=== PATIENT | male | born 1965 | race Caucasian/White ===

== ENCOUNTER 2018-08-01 12:37 | Emergency (ER) | payer OTHER ==
[~2018-08-01] VITALS: Wt 65.8 kg
[2018-08-01 12:37] VITALS: BP 143/87
[~2018-08-01 12:37] MED LIST: BACTRIM DS 8001 TA1 PO; BACTROBAN CREAM15 GM T; ELIMITE 5%60 GM PO; HYDROCODONE BIT1 T11 PO; KEFLEX500 M1 PO; MEDROL DOSEPAK4 MG PO; MOTRIN800 MG PO; PROVENTIL0.09 MG/AC IH
== END 2018-08-01 14:12 | disposition home or self-care (01) ==
LOC: ED 12:37
DX: S22.31XA Fracture of one rib, right side, initial encounter for closed fracture (principal); W22.8XXA Striking against or struck by other objects, initial encounter; Y93.89 Activity, other specified; Y92.828 Other wilderness area as the place of occurrence of the external cause; Y99.8 Other external cause status

== ENCOUNTER 2019-03-14 13:06 | Inpatient (IN) | payer SELFPAY ==
[~2019-03-14] VITALS: Ht 162.5 cm; Wt 61.9 kg
[2019-03-14 13:10] VITALS: BP 137/100
[2019-03-14 14:11] LABS: HEMATOCRIT 51.2 % (42.0-52.0); HEMOGLOBIN 17.7 g/dl (14.0-18.0); MEAN CELL VOLUME 99.4 fl (80.0-94.0); MEAN CORPUSCULAR HGB 34.4 pg (27.0-31.0); MEAN CORPUSCULAR HGB CONC 34.6 g/dl (33.0-37.0); MEAN PLATELET VOLUME 10.2 fl (9.6-12.3); PLATELET COUNT AUTOMATED 167 10*3/uL (130-400); RED BLOOD COUNT 5.15 10*6/uL (4.50-5.90); RED CELL DISTRI WIDTH 12.1 % (0-14.5); WHITE BLOOD COUNT 10.8 10*3/uL (4.8-10.8)
[2019-03-14 14:22] LABS: ACT PARTIAL THROMBO TIME 28.3 SECONDS (20.0-32.1); INTERNATIONAL NORM RATIO 0.9 (2.0-3.5)
[2019-03-14 14:26] LABS: ALBUMIN 3.6 gm/dl (3.1-4.5); ALKALINE PHOSPHATASE 98 U/L (45-117); BUN 16 mg/dl (7-24); CHLORIDE 98 mmol/L (98-107); CREATININE 0.99 mg/dL (0.70-1.30); LIPASE 78 U/L (73-393); POTASSIUM 3.6 mmol/L (3.5-5.1); SGOT/AST 28 IU/L (3-35); SGPT/ALT 35 U/L (12-78); SODIUM 131 mmol/L (136-145); TOTAL PROTEIN 8.1 gm/dL (6.4-8.2)
[2019-03-14 14:27] LABS: TROPONIN I < 0.015 ng/ml (<0.045)
[2019-03-14 14:30] LABS: PLATELET SUFFICIENCY NORMAL (NORMAL); TOTAL CELLS COUNTED 100 #CELLS
--- NOTE | 2019-03-14 15:41 | NUR ---
PT REMAINS W/O ACUTE DISTRESS NOTED AWAITING ALL RESULTS FOR ADDITIONAL PLAN OF CARE,SAFETY PRECAUTIONS INTACT AND CALL LIGHT WITHIN REACH.
[2019-03-14 15:57] VITALS: BP 130/91
--- NOTE | 2019-03-14 16:18 | NUR ---
PT POSITONED FOR COMFORT AND NO N/V/D NOTED WHILE IN ED,CALL LIGHT WITHIN REACH.
--- NOTE | 2019-03-14 16:49 | NUR ---
MILD RELIEF WITH PAIN MEDS.
[2019-03-14 18:52] VITALS: BP 130/88
--- NOTE | 2019-03-14 19:07 | NUR ---
PAIN REMAINS @ A 5 ON 1-10 PAIN SCALE AFTER MEDICATION ADMINISTRATION.
[2019-03-14 19:50] VITALS: BP 152/92
--- NOTE | 2019-03-14 19:50 | NUR ---
Time: 1948 A 54 year old MALE admitted to 5E under services of ISAIAS QUILES DO, Pt. arrived via WHEELCHAIR from ER. Chief complaint: ABDOMINAL PAIN. THOR JOHNSON
--- NOTE | 2019-03-14 21:03 | NUR ---
DR. JOSEPH NOTIFIED OF NEW CONSULT.
[2019-03-15] VITALS: BP 142/83
[2019-03-15 06:40] LABS: HEMATOCRIT 44.7 % (42.0-52.0); HEMOGLOBIN 15.3 g/dl (14.0-18.0); MEAN CELL VOLUME 97.8 fl (80.0-94.0); MEAN CORPUSCULAR HGB 33.5 pg (27.0-31.0); MEAN CORPUSCULAR HGB CONC 34.2 g/dl (33.0-37.0); MEAN PLATELET VOLUME 10.4 fl (9.6-12.3); PLATELET COUNT AUTOMATED 169 10*3/uL (130-400); RED BLOOD COUNT 4.57 10*6/uL (4.50-5.90); WHITE BLOOD COUNT 11.8 10*3/uL (4.8-10.8)
[2019-03-15 06:59] LABS: CHLORIDE 102 mmol/L (98-107); POTASSIUM 3.5 mmol/L (3.5-5.1); SODIUM 133 mmol/L (136-145)
[2019-03-15 07:00] LABS: INTERNATIONAL NORM RATIO 0.9 (2.0-3.5)
[2019-03-15 07:12] LABS: ALBUMIN 2.9 gm/dl (3.1-4.5); ALKALINE PHOSPHATASE 80 U/L (45-117); BUN 10 mg/dl (7-24); CHOLESTEROL 180 mg/dL (<200); HDL CHOLESTEROL 53 mg/dl (40-60); LDL CHOLESTEROL 105 mg/dL (9-159); SGOT/AST 21 IU/L (3-35); SGPT/ALT 30 U/L (12-78); TOTAL PROTEIN 6.8 gm/dL (6.4-8.2); TRIGLYCERIDES 110 mg/dl (<150); VLDL CHOLESTEROL 22 mg/dL (6-40)
[2019-03-15 07:21] LABS: ATYPICAL LYMPHS 1 % (0-0); TOTAL CELLS COUNTED 100 #CELLS
[2019-03-15 07:22] LABS: PLATELET SUFFICIENCY NORMAL (NORMAL)
[2019-03-15 08:00] VITALS: BP 150/86
[2019-03-15 09:52] LABS: VITAMIN D, 25-HYDROXY 19.6 ng/mL (30-100)
--- NOTE | 2019-03-15 11:27 | NUR ---
TYPEWRITER MECHANIC attempted to speak with the patient about his electric and gas being disconnected on 03/22/2019. RN and Aide was in room with the patient. TYPEWRITER MECHANIC will attempt to speak with patient at a later time and will provide resources on PIPP and the [facility] Winter Crisis Program. -KADY Frias
[2019-03-15 12:00] VITALS: BP 152/90
--- NOTE | 2019-03-15 12:18 | NUR ---
Fermentation Manager in to talk to patient. Patient states lives at HOME with SON. There are FEW steps in the home. Physician: NONE Pharmacy: [facility] Home health services: NONE Patient's level of ADLs: INDEPENDENT Patient has working utilities: STATES GAS IS OFF AND ELECTRIC IS GOING TO BE SHUT OFF. STATES HE RECENTLY QUIT HIS JOB AND IS COLLECTING UNEMPLOYMENT. KADY MCCLAIN NOTIFIED AND HAS TALKED TO PT AND GIVEN HIM RESOURSES DME: NONE Follow-up physician's appointment after d/c: WILL FIND MD AND MAKE APPOINTMENT AFTER DISCHARGE Does patient want to access PORTAL?: NO Discharge plan PT LIVES AT HOME WITH GROWN SON AND IS INDEPENDENT AT HOME. DENIES NEEDS AT HOME. SEE ABOVE NOT ABOUT UNTILTIES. WILL CONTINUE TO FOLLOW. PT STATES HE WILL HAVE RIDE HOME WHEN DISCHARGE.. PARAMJIT BRODERICK
[2019-03-15 16:00] VITALS: BP 151/75
--- NOTE | 2019-03-15 19:51 | NUR ---
ATTEMPTED TO CALL DR. JOSEPH REGARDING POSSIBLE EGD. NO ANSWER. WILL RETRY
[2019-03-15 20:00] VITALS: BP 159/84
[2019-03-16] VITALS (8 sets, daily range): BP systolic 127–164; BP diastolic 72–90
--- NOTE | 2019-03-16 00:46 | NUR ---
PATIENT GIVEN TYLENOL FOR TEMP OF 100.1. WILL CHECK EFFECTIVENESS.
[2019-03-16 06:29] LABS: HEMATOCRIT 47.6 % (42.0-52.0); HEMOGLOBIN 16.2 g/dl (14.0-18.0); MEAN CELL VOLUME 98.8 fl (80.0-94.0); MEAN CORPUSCULAR HGB 33.6 pg (27.0-31.0); MEAN PLATELET VOLUME 10.7 fl (9.6-12.3); PLATELET COUNT AUTOMATED 177 10*3/uL (130-400); RED BLOOD COUNT 4.82 10*6/uL (4.50-5.90); RED CELL DISTRI WIDTH 11.9 % (0-14.5); WHITE BLOOD COUNT 13.7 10*3/uL (4.8-10.8)
[2019-03-16 06:50] LABS: BUN 10 mg/dl (7-24); CHLORIDE 97 mmol/L (98-107); CREATININE 0.93 mg/dL (0.70-1.30); POTASSIUM 3.6 mmol/L (3.5-5.1); SODIUM 133 mmol/L (136-145)
--- NOTE | 2019-03-16 07:12 | NUR ---
PUBLIC WORKS SUPERVISOR spoke with the patient. PUBLIC WORKS SUPERVISOR provided the patient with the resources on HEAP Winter Crisis and PIPP programs. PUBLIC WORKS SUPERVISOR also provided the patient with the contact number for [employer] [facility] to seek out utility assistance. Patient stated that the gas in his home is already turned off and his electric bill is over $400 because he has been heating with electric heaters. Patient stated he is currently on unemployment. Patient also stated he has somewhat been in contact with [employer] as he received a little assistance from the [employer] last month. Patient stated he would read over the information provided to him and would contact [employer] to seek further assistance. PUBLIC WORKS SUPERVISOR to follow respectfully. -KADY Frias
[2019-03-16 07:38] LABS: BASOPHILS 1 % (0-1); PLATELET SUFFICIENCY NORMAL (NORMAL); TOTAL CELLS COUNTED 100 #CELLS
--- NOTE | 2019-03-16 13:15 | NUR ---
Pt taken off floor to OR for EGD.
--- NOTE | 2019-03-16 13:26 | NUR ---
PT CONTINUES TO DENY HE WILL HAVE NEEDS AFTER DISCHARGE. WILL CONTINUE TO FOLLOW.
--- NOTE | 2019-03-16 18:05 | NUR ---
Pt states that he feels like something is in his ear. States he cannot hear out of it on rt side. States sound is muffled. Appears that pt has wax in ear canal. States he wants to look in ear. I notified Dr. Macdonald of pt request. Currently with another pt and will be up when he can.
--- NOTE | 2019-03-16 19:00 | NUR ---
Dr. Macdonald was up and examined pt ear. States he is going to order some antibiotic drops for pt.
[2019-03-17] VITALS: BP 143/83
[2019-03-17 06:30] LABS: HEMATOCRIT 42.9 % (42.0-52.0); HEMOGLOBIN 14.7 g/dl (14.0-18.0); MEAN CELL VOLUME 98.2 fl (80.0-94.0); MEAN CORPUSCULAR HGB 33.6 pg (27.0-31.0); MEAN CORPUSCULAR HGB CONC 34.3 g/dl (33.0-37.0); MEAN PLATELET VOLUME 11.3 fl (9.6-12.3); PLATELET COUNT AUTOMATED 169 10*3/uL (130-400); RED BLOOD COUNT 4.37 10*6/uL (4.50-5.90); WHITE BLOOD COUNT 14.4 10*3/uL (4.8-10.8)
[2019-03-17 06:40] LABS: BUN 11 mg/dl (7-24); CHLORIDE 103 mmol/L (98-107); CREATININE 0.62 mg/dL (0.70-1.30); POTASSIUM 3.1 mmol/L (3.5-5.1); SODIUM 137 mmol/L (136-145)
[2019-03-17 07:11] LABS: PLATELET SUFFICIENCY NORMAL (NORMAL); TARGET CELLS FEW; TOTAL CELLS COUNTED 100 #CELLS
[2019-03-17 08:00] VITALS: BP 145/89
--- NOTE | 2019-03-17 08:00 | NUR ---
Alert and oriented x3. Denies n/v, states having diarrhea stools. IVF infusing per orders. States rt ear feels much better today, no drainage noted from ear this am.
--- NOTE | 2019-03-17 10:44 | NUR ---
Dr. Rocha states that pt is request advancing of diet. I spoke with Dr. Garcia regarding this. States NOT to advance at this time, pt to remain on full liquid. Dr. Garcia states pt had large ulcer and need to give medications time to heal a bit before solid foods.
[2019-03-17 12:00] VITALS: BP 134/83
[2019-03-17 16:00] VITALS: BP 134/91
--- NOTE | 2019-03-17 19:40 | NUR ---
24 HOUR CHART CHECK COMPLETE
[2019-03-17 20:00] VITALS: BP 129/82
--- NOTE | 2019-03-17 20:15 | NUR ---
PATIENT ASSESSMENT COMPLETED AT THIS TIME WITHOUT INCIDENT. PATIENT DENIES ANY PAIN OR NEEDS AT THIS TIME. CALL LIGHT WITHIN REACH, WILL CONTINUE TO MONITOR.
[2019-03-18] VITALS: BP 124/81
[2019-03-18 06:49] LABS: BASO # 0.1 10*3/uL (0.0-0.1); BASO % 0.7 % (0.0-1.0); EOS # 0.3 10*3/uL (0.0-0.4); EOS % 2.7 % (1.0-4.0); HEMATOCRIT 42.8 % (42.0-52.0); HEMOGLOBIN 14.7 g/dl (14.0-18.0); LYMPH # 2.2 10*3/uL (1.3-4.4); LYMPH % 22.4 % (27.0-41.0); MEAN CELL VOLUME 99.1 fl (80.0-94.0); MEAN CORPUSCULAR HGB CONC 34.3 g/dl (33.0-37.0); MEAN PLATELET VOLUME 12.5 fl (9.6-12.3); MONO # 1.1 10*3/uL (0.1-1.0); MONO % 11.2 % (3.0-9.0); NEUT % 62.1 % (47.0-73.0); PLATELET COUNT AUTOMATED 202 10*3/uL (130-400); RED BLOOD COUNT 4.32 10*6/uL (4.50-5.90); RED CELL DISTRI WIDTH 12.1 % (0-14.5); WHITE BLOOD COUNT 9.7 10*3/uL (4.8-10.8)
[2019-03-18 08:00] VITALS: BP 145/91
[2019-03-18 12:00] VITALS: BP 123/73
--- NOTE | 2019-03-18 14:31 | NUR ---
DR JOSEPH CALLED AND ASKED IF DIET COULD BE ADVANCED FROM FULL LIQUID PER DR JOSEPH PT TO STAY ON FULL LIQUID FOR TODAY DR GUAJARDO NOTIFIED
[2019-03-18 16:00] VITALS: BP 134/82
[2019-03-18 20:00] VITALS: BP 132/88
[2019-03-19] VITALS: BP 140/85
--- NOTE | 2019-03-19 02:56 | NUR ---
24 HOUR CHART CHECK COMPLETED
[2019-03-19 05:59] LABS: HEMATOCRIT 43.2 % (42.0-52.0); HEMOGLOBIN 14.6 g/dl (14.0-18.0); MEAN CELL VOLUME 97.7 fl (80.0-94.0); MEAN CORPUSCULAR HGB CONC 33.8 g/dl (33.0-37.0); MEAN PLATELET VOLUME 10.4 fl (9.6-12.3); PLATELET COUNT AUTOMATED 262 10*3/uL (130-400); RED BLOOD COUNT 4.42 10*6/uL (4.50-5.90); RED CELL DISTRI WIDTH 11.9 % (0-14.5); WHITE BLOOD COUNT 7.9 10*3/uL (4.8-10.8)
[2019-03-19 06:46] LABS: ATYPICAL LYMPHS 1 % (0-0); PLATELET SUFFICIENCY NORMAL (NORMAL); TARGET CELLS FEW; TOTAL CELLS COUNTED 100 #CELLS
--- NOTE | 2019-03-19 07:46 | NUR ---
pt resting in bed. no distress noted. will monitor
--- NOTE | 2019-03-19 07:53 | NUR ---
VITAL SIGNS ARE STABLE. PATIENT IS RESTING IN BED AT THIS TIME. HE IS PLEASANT AND COOPERATIVE. MARIA FERNANDA. BILATERAL EQUAL PATIENT RESOURCE SPECIALIST. A&Ox3. LUNGS SOUNDS ARE CLEAR THROUGHOUT. NON LABORED RESPIRATIONS. HEART SOUNDS ARE NORMAL. ABDOMEN IS SOFT, NON TENDER AND NON DISTENDED. HYPERACTIVE BOWEL SOUNDS X4. PATIENT HAS NO COMPLAINTS OF ABDOMINAL PAIN. HE NOTES THAT HIS LAST BOWEL MOVEMENT WAS THIS MORNING AND STATES THAT IT WAS "BROWN AND WATER". SKIN IS PINK, WARM, DRY AND NON TENTING, TURGOR IS GOOD. CAPILLARY REFILL IS LESS THAN 3 SECONDS. THERE IS A 20G IV HEP LOCK IN HIS LEFT ARM, NO ECCYMOSIS, WARMTH OR EDEMA TO THE SITE. ANDREI CORTES SPNRCC
[2019-03-19 08:00] VITALS: BP 132/86
--- NOTE | 2019-03-19 09:45 | NUR ---
PATIENT UP OUT OF BED. AMBULATED TO THE SHOWER. STEADY GAIT. NO COMPLAINTS AT THIS TIME. WILL CONTINUE TO MONITOR. ANDREI MELENDEZ
--- NOTE | 2019-03-19 11:20 | NUR ---
PATIENT IS RESTING IN BED WATCHING TELEVISION. NO COMPLAINTS. CALL LIGHT WITHIN REACH. WILL CONTINUE TO MONITOR. ANDREI MELENDEZ
[2019-03-19 12:04] VITALS: BP 136/86
--- NOTE | 2019-03-19 15:14 | NUR ---
PT LIVES AT HOME WITH HIS SON AND IS INDEPENDENT IN HIS CARE. WILL CONTINUE TO FOLLOW.
[2019-03-19 16:00] VITALS: BP 148/95
--- NOTE | 2019-03-19 16:06 | NUR ---
PT RESTING IN BED./ NO DISTRESS NOTED. WILL MONITOR
[2019-03-19 20:00] VITALS: BP 119/83
--- NOTE | 2019-03-19 22:07 | NUR ---
IV started right hand with #22 angiocath after 3 attempts. The IV site was prepped with Chloraprep. Heparin lock attached. Sterile dressing applied. Patient tolerated precedure well. Procedure performed according to [facility] policy & procedure. NILAM LINDSEY
[2019-03-20] VITALS: BP 129/84
--- NOTE | 2019-03-20 01:56 | NUR ---
24 HR chart check completed.
--- NOTE | 2019-03-20 04:24 | NUR ---
Patient sleeping. Respirations relaxed and easy. Siderails up . [place] on. NILAM LINDSEY
[2019-03-20 06:44] LABS: BUN 9 mg/dl (7-24); CHLORIDE 104 mmol/L (98-107); CREATININE 0.76 mg/dL (0.70-1.30); POTASSIUM 3.1 mmol/L (3.5-5.1); SODIUM 138 mmol/L (136-145)
[2019-03-20 08:00] VITALS: BP 118/70
--- NOTE | 2019-03-20 08:00 | NUR ---
Patient resting quietly with no c/o discomfort. Respirations easy and regular. Vital signs stable. No overt distress. ARTURO DIETZ
[2019-03-20 12:00] VITALS: BP 143/82
[2019-03-20 12:07] LABS: IGG P18 AB Absent (.); IGG P23 AB Absent (.); IGG P28 AB Absent (.); IGG P30 AB Absent (.); IGG P39 AB Absent (.); IGG P41 AB Absent (.); IGG P45 AB Absent (.); IGG P58 AB Absent (.); IGG P63 AB Absent (.); IGG P66 AB Absent (.); IGM P23 AB Absent (.); IGM P39 AB Absent (.); IGM P41 AB Absent (.); LYME IGG WB INTERPRETATION Negative (.); LYME IGM WB INTERPRETATION Negative (.)
[2019-03-20] MEDS ORDERED: PANTOPRAZOLE SO40 MG PO (12:45)
[2019-03-20] MEDS ORDERED: DOXYCYCLINE100 M3 PO (12:45)
[2019-03-20] MEDS ORDERED: Carafate1 GM PO (12:45)
[2019-03-20] MEDS ORDERED: CIPROFLOXACIN2.5 M1 OT (12:45)
--- NOTE | 2019-03-20 13:40 | NUR ---
LEAVING IN CARE OR SELF, AMBULATORY. RN TO GET PRESCRIPTIONS SWITCHED TO IN HOSPITAL PHARMACY AND CALL PT WHO INSISTED ON COMING BACK FOR PRESCRIPTIONS.
== END 2019-03-20 13:40 | disposition home or self-care (01) | DRG 867 ==
LOC: ED 13:06 → 5E 18:26 → EDHOLD 18:26 → 5E 19:09
PROVIDERS: Emergency Medicine; Internal Medicine; Student in an Organized Health Care Education/Training Program; ADMIT Internal Medicine
PROC: 0DB68ZX Excision of Stomach, Via Natural or Artificial Opening Endoscopic, Diagnostic (ICD-10-PCS; principal; 2019-03-16)
DX: A69.20 Lyme disease, unspecified (principal); K29.71 Gastritis, unspecified, with bleeding; E87.1 Hypo-osmolality and hyponatremia; K52.9 Noninfective gastroenteritis and colitis, unspecified; I10 Essential (primary) hypertension; D75.89 Other specified diseases of blood and blood-forming organs; D72.810 Lymphocytopenia; E83.41 Hypermagnesemia; F17.210 Nicotine dependence, cigarettes, uncomplicated; K57.90 Diverticulosis of intestine, part unspecified, without perforation or abscess without bleeding; D72.821 Monocytosis (symptomatic); F10.20 Alcohol dependence, uncomplicated; K26.9 Duodenal ulcer, unspecified as acute or chronic, without hemorrhage or perforation; H66.91 Otitis media, unspecified, right ear; K76.0 Fatty (change of) liver, not elsewhere classified; Z71.6 Tobacco abuse counseling; Z87.81 Personal history of (healed) traumatic fracture; Z82.49 Family history of ischemic heart disease and other diseases of the circulatory system; Z79.899 Other long term (current) drug therapy

== ENCOUNTER 2019-04-01 15:08 | Emergency (ER) | payer SELFPAY ==
[~2019-04-01] VITALS: Ht 162.5 cm; Wt 63.5 kg
[~2019-04-01 15:08] MED LIST changes: +CIPROFLOXACIN2.5 M1 OT; +Carafate1 GM PO; +DOXYCYCLINE100 M3 PO; +PANTOPRAZOLE SO40 MG PO
[2019-04-01 15:13] VITALS: BP 115/76
== END 2019-04-01 15:42 | disposition home or self-care (01) ==
LOC: ED 15:08
DX: H92.03 Otalgia, bilateral (principal); H61.22 Impacted cerumen, left ear; R53.83 Other fatigue; F17.200 Nicotine dependence, unspecified, uncomplicated; Z79.2 Long term (current) use of antibiotics; Z79.899 Other long term (current) drug therapy

== ENCOUNTER → 2019-04-03 | Outpatient (CLI) | payer SELFPAY | END | disposition home or self-care (01) | LOC: RESCLI 02:17 | DX: B37.2 Candidiasis of skin and nail (principal); H61.23 Impacted cerumen, bilateral; A69.20 Lyme disease, unspecified; K25.9 Gastric ulcer, unspecified as acute or chronic, without hemorrhage or perforation; F10.10 Alcohol abuse, uncomplicated; F12.90 Cannabis use, unspecified, uncomplicated; F17.200 Nicotine dependence, unspecified, uncomplicated; Z79.899 Other long term (current) drug therapy ==

== ENCOUNTER → 2019-05-11 | Outpatient (CLI) | payer MEDICAID | END | disposition home or self-care (01) | LOC: RESCLI 01:12 | DX: K29.50 Unspecified chronic gastritis without bleeding (principal); A69.20 Lyme disease, unspecified; F32.9 Major depressive disorder, single episode, unspecified; F12.90 Cannabis use, unspecified, uncomplicated; R68.89 Other general symptoms and signs; R10.31 Right lower quadrant pain; Z72.0 Tobacco use ==

== ENCOUNTER → 2019-05-15 | Outpatient (CLI) | payer MEDICAID ==
[2019-05-15 09:57] LABS: BASO # 0.1 10*3/uL (0.0-0.1); EOS # 0.4 10*3/uL (0.0-0.4); EOS % 4.6 % (1.0-4.0); HEMATOCRIT 47.1 % (42.0-52.0); HEMOGLOBIN 15.6 g/dl (14.0-18.0); LYMPH # 2.5 10*3/uL (1.3-4.4); LYMPH % 32.6 % (27.0-41.0); MEAN CELL VOLUME 96.9 fl (80.0-94.0); MEAN CORPUSCULAR HGB 32.1 pg (27.0-31.0); MEAN CORPUSCULAR HGB CONC 33.1 g/dl (33.0-37.0); MEAN PLATELET VOLUME 10.5 fl (9.6-12.3); MONO # 0.7 10*3/uL (0.1-1.0); MONO % 9.4 % (3.0-9.0); NEUT % 52.3 % (47.0-73.0); PLATELET COUNT AUTOMATED 249 10*3/uL (130-400); RED BLOOD COUNT 4.86 10*6/uL (4.50-5.90); RED CELL DISTRI WIDTH 11.9 % (0-14.5); WHITE BLOOD COUNT 7.7 10*3/uL (4.8-10.8)
[2019-05-15 09:58] LABS: ALBUMIN 3.7 gm/dl (3.1-4.5); BUN 11 mg/dl (7-24); CHLORIDE 111 mmol/L (98-107); CREATININE 1.05 mg/dL (0.70-1.30); POTASSIUM 4.3 mmol/L (3.5-5.1); SGOT/AST 17 IU/L (3-35); SODIUM 143 mmol/L (136-145)
[2019-05-15 10:09] LABS: ALKALINE PHOSPHATASE 86 U/L (45-117); CHOLESTEROL 248 mg/dL (<200); HDL CHOLESTEROL 34 mg/dl (40-60); LDL CHOLESTEROL 185 mg/dL (9-159); SGPT/ALT 27 U/L (12-78); TOTAL PROTEIN 7.3 gm/dL (6.4-8.2); TRIGLYCERIDES 144 mg/dl (<150); VLDL CHOLESTEROL 29 mg/dL (6-40)
== END | disposition home or self-care (01) ==
LOC: LAB 09:00
PROVIDERS: Hospitalist
DX: R10.31 Right lower quadrant pain (principal); R68.89 Other general symptoms and signs

== ENCOUNTER → 2019-05-18 | Outpatient (CLI) | payer MEDICAID | END | disposition home or self-care (01) | LOC: CT 09:39 | DX: R10.31 Right lower quadrant pain (principal) ==

== ENCOUNTER 2019-06-20 10:43 | Emergency (ER) | payer OTHER, MEDICAID ==
[~2019-06-20] VITALS: Wt 68.0 kg
[2019-06-20 11:39] LABS: BASO # 0.1 10*3/uL (0.0-0.1); BASO % 0.9 % (0.0-1.0); EOS # 0.3 10*3/uL (0.0-0.4); EOS % 3.7 % (1.0-4.0); HEMATOCRIT 44.6 % (42.0-52.0); LYMPH # 2.5 10*3/uL (1.3-4.4); LYMPH % 33.3 % (27.0-41.0); MEAN CORPUSCULAR HGB 32.6 pg (27.0-31.0); MEAN CORPUSCULAR HGB CONC 33.6 g/dl (33.0-37.0); MONO # 0.7 10*3/uL (0.1-1.0); MONO % 9.3 % (3.0-9.0); NEUT # 3.9 10*3/uL (2.3-7.9); NEUT % 52.5 % (47.0-73.0); PLATELET COUNT AUTOMATED 195 10*3/uL (130-400); RED CELL DISTRI WIDTH 12.1 % (0-14.5); WHITE BLOOD COUNT 7.5 10*3/uL (4.8-10.8)
[2019-06-20 11:45] LABS: BILIRUBIN NEGATIVE (NEGATIVE); BLOOD NEGATIVE (NEGATIVE); CLARITY SL CLOUDY (CLEAR); COLOR YELLOW (YELLOW); GLUCOSE NEGATIVE (NEGATIVE); KETONE NEGATIVE (NEGATIVE)
[2019-06-20 11:46] LABS: LEUKO ESTERASE NEGATIVE (NEGATIVE); NITRITE NEGATIVE (NEGATIVE); PH 6.5 (5.0-9.0); UROBILINOGEN 0.2 E.U./dl (0.2-1.0)
[2019-06-20 11:47] LABS: BACTERIA 1+; MUCOUS 1+
[2019-06-20 11:55] LABS: ALBUMIN 3.6 gm/dl (3.1-4.5); ALKALINE PHOSPHATASE 89 U/L (45-117); BUN 12 mg/dl (7-24); CHLORIDE 106 mmol/L (98-107); CREATININE 1.05 mg/dL (0.70-1.30); LIPASE 137 U/L (73-393); SGOT/AST 16 IU/L (3-35); SGPT/ALT 27 U/L (12-78); SODIUM 138 mmol/L (136-145); TOTAL PROTEIN 7.1 gm/dL (6.4-8.2)
[2019-06-20 13:44] VITALS: BP 116/80
== END 2019-06-20 15:05 | disposition home or self-care (01) ==
LOC: ED 10:43
PROVIDERS: Nurse Practitioner Family
DX: R10.9 Unspecified abdominal pain (principal); R11.0 Nausea; F17.200 Nicotine dependence, unspecified, uncomplicated; Z79.899 Other long term (current) drug therapy

== ENCOUNTER 2019-10-30 10:10 | Emergency (ER) | payer OTHER ==
[~2019-10-30] VITALS: Ht 162.5 cm; Wt 63.5 kg
[2019-10-30 10:17] VITALS: BP 138/98
[2019-10-30] MEDS ORDERED: NAPROSYN500 MG PO (12:12)
[2019-10-30] MEDS ORDERED: CYCLOBENZAPRINE10 MG PO (12:12)
== END 2019-10-30 12:02 | disposition home or self-care (01) ==
LOC: ED 10:10
DX: S49.91XA Unspecified injury of right shoulder and upper arm, initial encounter (principal); Z87.891 Personal history of nicotine dependence; X50.9XXA Other and unspecified overexertion or strenuous movements or postures, initial encounter; Y93.89 Activity, other specified; Y92.89 Other specified places as the place of occurrence of the external cause; Y99.8 Other external cause status

== ENCOUNTER 2019-11-26 10:24 | Emergency (ER) | payer OTHER ==
[~2019-11-26] VITALS: Ht 162.5 cm; Wt 63.5 kg
[~2019-11-26 10:24] MED LIST changes: +CYCLOBENZAPRINE10 MG PO; +NAPROSYN500 MG PO
[2019-11-26 10:32] VITALS: BP 132/80
[2019-11-26] MEDS ORDERED: MEDROL DOSEPAK4 MG PO (12:22)
[2019-11-26] MEDS ORDERED: ROBAXIN-750750 MG PO (12:22)
[2019-11-26] MEDS ORDERED: NAPROSYN500 MG PO (12:22)
== END 2019-11-26 12:35 | disposition home or self-care (01) ==
LOC: ED 10:24
DX: S42.001A Fracture of unspecified part of right clavicle, initial encounter for closed fracture (principal); S46.911A Strain of unspecified muscle, fascia and tendon at shoulder and upper arm level, right arm, initial encounter; Z79.899 Other long term (current) drug therapy; X58.XXXA Exposure to other specified factors, initial encounter; Y93.89 Activity, other specified; Y92.89 Other specified places as the place of occurrence of the external cause; Y99.8 Other external cause status

== ENCOUNTER 2020-01-03 10:25 | Emergency (ER) | payer OTHER ==
[~2020-01-03] VITALS: Ht 162.5 cm; Wt 68.0 kg
[~2020-01-03 10:25] MED LIST changes: +ROBAXIN-750750 MG PO
[2020-01-03 10:30] VITALS: BP 135/107
[2020-01-03] MEDS ORDERED: PREDNISONE20 M1 PO (11:15)
[2020-01-03] MEDS ORDERED: NAPROSYN500 MG PO (11:15)
[2020-01-03] MEDS ORDERED: METHOCARBAMOL500 M1 PO (11:50)
== END 2020-01-03 11:43 | disposition home or self-care (01) ==
LOC: ED 10:25
DX: S16.1XXA Strain of muscle, fascia and tendon at neck level, initial encounter (principal); G89.29 Other chronic pain; X58.XXXA Exposure to other specified factors, initial encounter; Y93.89 Activity, other specified; Y92.89 Other specified places as the place of occurrence of the external cause; Y99.8 Other external cause status

== ENCOUNTER → 2020-02-01 | Outpatient (CLI) | payer OTHER ==
[~2020-02-01] MED LIST changes: +METHOCARBAMOL500 M1 PO; +PREDNISONE20 M1 PO
== END | disposition home or self-care (01) ==
LOC: RESCLI 00:23
PROVIDERS: ATTEND Internal Medicine
DX: Z23 Encounter for immunization (principal); M43.6 Torticollis; F32.9 Major depressive disorder, single episode, unspecified; E78.2 Mixed hyperlipidemia; G89.29 Other chronic pain; M25.511 Pain in right shoulder

== ENCOUNTER → 2020-05-13 | Outpatient (CLI) | payer OTHER | END | disposition home or self-care (01) | LOC: RESCLI 01:11 | PROVIDERS: ATTEND Internal Medicine | DX: M25.511 Pain in right shoulder (principal); M43.6 Torticollis; I10 Essential (primary) hypertension; E78.2 Mixed hyperlipidemia; K76.0 Fatty (change of) liver, not elsewhere classified; A69.20 Lyme disease, unspecified; K25.9 Gastric ulcer, unspecified as acute or chronic, without hemorrhage or perforation; Z79.899 Other long term (current) drug therapy ==

== ENCOUNTER 2020-06-12 09:43 | Emergency (ER) | payer OTHER ==
[~2020-06-12] VITALS: Wt 63.5 kg
[2020-06-12 09:58] VITALS: BP 144/87
== END 2020-06-12 11:00 | disposition home or self-care (01) ==
LOC: ED 09:43
DX: S60.222A Contusion of left hand, initial encounter (principal); F17.200 Nicotine dependence, unspecified, uncomplicated; Z98.890 Other specified postprocedural states; X58.XXXA Exposure to other specified factors, initial encounter; Y93.89 Activity, other specified; Y92.89 Other specified places as the place of occurrence of the external cause; Y99.8 Other external cause status

== ENCOUNTER 2020-09-22 09:45 | Emergency (ER) | payer OTHER ==
[~2020-09-22] VITALS: Ht 162.5 cm; Wt 63.5 kg
[2020-09-22 10:06] VITALS: BP 144/104
[2020-09-22] MEDS ORDERED: METHOCARBAMOL500 M1 PO (12:09)
[2020-09-22] MEDS ORDERED: IBUPROFEN600 MG PO (12:09)
== END 2020-09-22 12:20 | disposition home or self-care (01) ==
LOC: ED 09:45
DX: S16.1XXA Strain of muscle, fascia and tendon at neck level, initial encounter (principal); S29.012A Strain of muscle and tendon of back wall of thorax, initial encounter; M62.838 Other muscle spasm; Z98.890 Other specified postprocedural states; X58.XXXA Exposure to other specified factors, initial encounter; Y93.89 Activity, other specified; Y92.89 Other specified places as the place of occurrence of the external cause; Y99.8 Other external cause status

== ENCOUNTER → 2021-02-21 | Outpatient (CLI) | payer OTHER ==
[~2021-02-21] MED LIST changes: +IBUPROFEN600 MG PO
== END | disposition home or self-care (01) ==
LOC: RAD 11:42
PROVIDERS: ATTEND Nurse Practitioner Family
DX: M47.22 Other spondylosis with radiculopathy, cervical region (principal)

== ENCOUNTER 2021-07-07 08:37 | Emergency (ER) | payer OTHER ==
[~2021-07-07] VITALS: Ht 162.5 cm; Wt 63.5 kg
[2021-07-07 08:42] VITALS: BP 133/96
[2021-07-07] MEDS ORDERED: IBU800 M2 PO (09:22)
[2021-07-07] MEDS ORDERED: CYCLOBENZAPRINE10 MG PO (09:22)
== END 2021-07-07 10:19 | disposition home or self-care (01) ==
LOC: ED 08:37
DX: M54.12 Radiculopathy, cervical region (principal); Z87.891 Personal history of nicotine dependence

== ENCOUNTER 2021-08-28 10:24 | Emergency (ER) | payer OTHER ==
[~2021-08-28] VITALS: Ht 162.5 cm; Wt 59.0 kg
[~2021-08-28 10:24] MED LIST changes: +IBU800 M2 PO
[2021-08-28 10:32] VITALS: BP 157/94
== END 2021-08-28 15:14 | disposition left against medical advice (07) ==
LOC: ED 10:24
DX: G89.29 Other chronic pain (principal); M54.2 Cervicalgia

== ENCOUNTER 2021-11-19 10:03 | Emergency (ER) | payer OTHER ==
[~2021-11-19] VITALS: Ht 162.5 cm; Wt 59.0 kg
[2021-11-19 10:12] VITALS: BP 125/77
[2021-11-19 10:46] LABS: BASO # 0.1 10*3/uL (0.0-0.1); BASO % 1.2 % (0.0-1.0); EOS # 0.2 10*3/uL (0.0-0.4); EOS % 3.7 % (1.0-4.0); HEMATOCRIT 47.4 % (42.0-52.0); LYMPH # 1.8 10*3/uL (1.3-4.4); LYMPH % 27.9 % (27.0-41.0); MEAN CELL VOLUME 98.1 fl (80.0-94.0); MEAN CORPUSCULAR HGB 33.7 pg (27.0-31.0); MEAN CORPUSCULAR HGB CONC 34.4 g/dl (33.0-37.0); MEAN PLATELET VOLUME 9.6 fl (9.6-12.3); MONO # 0.5 10*3/uL (0.1-1.0); NEUT # 3.9 10*3/uL (2.3-7.9); NEUT % 59.9 % (47.0-73.0); PLATELET COUNT AUTOMATED 204 10*3/uL (130-400); RED BLOOD COUNT 4.83 10*6/uL (4.50-5.90); RED CELL DISTRI WIDTH 12.9 % (0-14.5); WHITE BLOOD COUNT 6.6 10*3/uL (4.8-10.8)
[2021-11-19 10:59] LABS: ACT PARTIAL THROMBO TIME 26.5 SECONDS (20.0-32.1)
[2021-11-19 11:04] LABS: ALKALINE PHOSPHATASE 89 U/L (45-117); BUN 12 mg/dl (7-24); CHLORIDE 109 mmol/L (98-107); CREATININE 1.04 mg/dL (0.70-1.30); LIPASE 118 U/L (73-393); POTASSIUM 3.9 mmol/L (3.5-5.1); SGOT/AST 23 IU/L (3-35); SGPT/ALT 26 U/L (12-78); SODIUM 141 mmol/L (136-145); TOTAL PROTEIN 7.6 gm/dL (6.4-8.2)
[2021-11-19] MEDS ORDERED: PREDNISONE50 MG PO (13:17)
== END 2021-11-19 13:24 | disposition home or self-care (01) ==
LOC: ED 10:03
PROVIDERS: Emergency Medicine
DX: S16.1XXA Strain of muscle, fascia and tendon at neck level, initial encounter (principal); R07.81 Pleurodynia; R51.9 Headache, unspecified; F17.200 Nicotine dependence, unspecified, uncomplicated; Z98.890 Other specified postprocedural states; X58.XXXA Exposure to other specified factors, initial encounter; Y93.89 Activity, other specified; Y92.89 Other specified places as the place of occurrence of the external cause; Y99.8 Other external cause status

== ENCOUNTER 2022-03-11 09:38 | Emergency (ER) | payer OTHER ==
[~2022-03-11] VITALS: Ht 162.5 cm; Wt 63.5 kg
[~2022-03-11 09:38] MED LIST changes: +PREDNISONE50 MG PO
[2022-03-11 09:45] VITALS: BP 151/88
[2022-03-11 09:58] LABS: BASO # 0.1 10*3/uL (0.0-0.1); BASO % 1.3 % (0.0-1.0); EOS # 0.3 10*3/uL (0.0-0.4); EOS % 4.3 % (1.0-4.0); HEMATOCRIT 49.6 % (42.0-52.0); LYMPH % 31.3 % (27.0-41.0); MEAN CELL VOLUME 99.8 fl (80.0-94.0); MEAN CORPUSCULAR HGB CONC 33.1 g/dl (33.0-37.0); MEAN PLATELET VOLUME 9.3 fl (9.6-12.3); MONO # 0.6 10*3/uL (0.1-1.0); MONO % 8.9 % (3.0-9.0); NEUT # 3.4 10*3/uL (2.3-7.9); NEUT % 53.9 % (47.0-73.0); PLATELET COUNT AUTOMATED 218 10*3/uL (130-400); RED BLOOD COUNT 4.97 10*6/uL (4.50-5.90); RED CELL DISTRI WIDTH 12.7 % (0-14.5); WHITE BLOOD COUNT 6.3 10*3/uL (4.8-10.8)
[2022-03-11 10:12] LABS: ACT PARTIAL THROMBO TIME 26.2 SECONDS (20.0-32.1)
[2022-03-11 10:15] LABS: ALKALINE PHOSPHATASE 79 U/L (46-116); BUN 10 mg/dl (9-23); CHLORIDE 108 mmol/L (98-107); CREATININE 0.94 mg/dL (0.70-1.30); POTASSIUM 4.1 mmol/L (3.4-5.1); SGPT/ALT 31 U/L (10-49); SODIUM 140 mmol/L (136-145)
[2022-03-11 10:16] LABS: TOTAL PROTEIN 7.2 gm/dL (6.0-8.0)
[2022-03-11 10:43] LABS: ETHYL ALCOHOL < 3.0 mg/dl (<3)
== END 2022-03-11 10:50 | disposition home or self-care (01) ==
LOC: ED 09:38
PROVIDERS: Emergency Medicine
DX: G89.29 Other chronic pain (principal); M54.2 Cervicalgia; M54.9 Dorsalgia, unspecified; F17.210 Nicotine dependence, cigarettes, uncomplicated; I10 Essential (primary) hypertension

== ENCOUNTER 2022-09-13 08:24 | Emergency (ER) | payer OTHER ==
[~2022-09-13] VITALS: Ht 162.5 cm; Wt 63.5 kg
[2022-09-13 08:39] VITALS: BP 152/87
[2022-09-13] MEDS ORDERED: PREDNISONE50 MG PO (10:06)
[2022-09-13] MEDS ORDERED: CYCLOBENZAPRINE10 MG PO (10:06)
== END 2022-09-13 10:18 | disposition home or self-care (01) ==
LOC: ED 08:24
DX: S40.861A Insect bite (nonvenomous) of right upper arm, initial encounter (principal); M54.12 Radiculopathy, cervical region; Z98.890 Other specified postprocedural states; F17.200 Nicotine dependence, unspecified, uncomplicated; W57.XXXA Bitten or stung by nonvenomous insect and other nonvenomous arthropods, initial encounter; Y93.89 Activity, other specified; Y92.89 Other specified places as the place of occurrence of the external cause; Y99.8 Other external cause status

== ENCOUNTER → 2022-11-22 | Outpatient (CLI) | payer OTHER | END | disposition home or self-care (01) | LOC: RAD 13:19 | PROVIDERS: ATTEND Internal Medicine | DX: M54.2 Cervicalgia (principal) ==

== ENCOUNTER → 2022-12-02 | Outpatient (CLI) | payer OTHER | END | disposition home or self-care (01) | LOC: RAD 11:52 | PROVIDERS: ATTEND Internal Medicine | DX: M47.817 Spondylosis without myelopathy or radiculopathy, lumbosacral region (principal); M50.30 Other cervical disc degeneration, unspecified cervical region; I70.0 Atherosclerosis of aorta; M25.78 Osteophyte, vertebrae; M48.02 Spinal stenosis, cervical region ==

== ENCOUNTER 2023-05-05 12:13 | Emergency (ER) | payer OTHER ==
[~2023-05-05] VITALS: Ht 162.5 cm; Wt 68.0 kg
[2023-05-05 12:22] VITALS: BP 147/83
[2023-05-05] MEDS ORDERED: PREDNISONE10 M1 PO (15:42)
== END 2023-05-05 15:47 | disposition home or self-care (01) ==
LOC: ED 12:13
DX: M54.16 Radiculopathy, lumbar region (principal); M79.652 Pain in left thigh; F10.10 Alcohol abuse, uncomplicated; F17.200 Nicotine dependence, unspecified, uncomplicated; Z98.890 Other specified postprocedural states

== ENCOUNTER 2024-06-15 22:40 | Emergency (ER) | payer MEDICARE, OTHER ==
[~2024-06-15] VITALS: Ht 165.1 cm; Wt 74.1 kg
[~2024-06-15 22:40] MED LIST changes: +PREDNISONE10 M1 PO
[2024-06-15 23:02] LABS: BASO # 0.1 10*3/uL (0.0-0.1); BASO % 0.9 % (0.0-1.0); EOS # 0.5 10*3/uL (0.0-0.4); EOS % 5.1 % (1.0-4.0); HEMATOCRIT 48.5 % (42.0-52.0); MEAN CELL VOLUME 100.2 fl (80.0-94.0); MEAN CORPUSCULAR HGB 33.3 pg (27.0-31.0); MEAN CORPUSCULAR HGB CONC 33.2 g/dl (33.0-37.0); MEAN PLATELET VOLUME 9.5 fl (9.6-12.3); MONO # 0.9 10*3/uL (0.1-1.0); MONO % 9.9 % (3.0-9.0); NEUT # 4.8 10*3/uL (2.3-7.9); NEUT % 53.2 % (47.0-73.0); PLATELET COUNT AUTOMATED 248 10*3/uL (130-400); RED BLOOD COUNT 4.84 10*6/uL (4.50-5.90); RED CELL DISTRI WIDTH 12.5 % (0-14.5)
[2024-06-15 23:37] LABS: ALKALINE PHOSPHATASE 75 U/L (46-116); BUN 7 mg/dl (9-23); CHLORIDE 108 mmol/L (98-107); CPK 141 U/L (34-171); POTASSIUM 3.5 mmol/L (3.4-5.1); SGPT/ALT 20 U/L (5-49); TOTAL PROTEIN 7.3 gm/dL (6.0-8.0)
[2024-06-15 23:42] LABS: ETHYL ALCOHOL 347.5 mg/dl (<3)
[2024-06-16 01:08] LABS: BILIRUBIN Negative (Negative); BLOOD Negative (Negative); CLARITY Clear (Clear); COLOR Yellow (Yellow); GLUCOSE Negative (Negative); KETONE Negative (Negative); LEUKO ESTERASE Negative (Negative); NITRITE Negative (Negative); SPECIFIC GRAVITY <= 1.005 (1.001-1.030); UROBILINOGEN 0.2 E.U./dl (0.0-1.0)
[2024-06-16 01:15] LABS: URINE AMPHETAMINES Negative (1000ng/ml); URINE BARBITURATES Negative (200ng/ml); URINE BENZODIAZEPINES Negative (200ng/ml); URINE CANNABINOIDS (THC) Positive (50ng/ml); URINE COCAINE Negative (300ng/ml); URINE METHADONE Negative (300ng/ml); URINE OPIATES Negative (300ng/ml); URINE PHENCYCLIDINE Negative (25ng/ml)
[2024-06-16 01:51] LABS: RBC 0-2 rbc/hpf (0-2); WBC 0-2 wbc/hpf (0-5)
[2024-06-16] MEDS ORDERED: IBUPROFEN 800 MG TAB PO ONE (07:40)
[2024-06-16 14:04] VITALS: BP 149/88
== END 2024-06-16 14:08 | disposition home or self-care (01) ==
LOC: ED 22:40
PROVIDERS: Internal Medicine
DX: F10.129 Alcohol abuse with intoxication, unspecified (principal); R45.851 Suicidal ideations; M54.9 Dorsalgia, unspecified; R07.89 Other chest pain; F17.200 Nicotine dependence, unspecified, uncomplicated; Z98.890 Other specified postprocedural states; Y90.8 Blood alcohol level of 240 mg/100 ml or more

== ENCOUNTER → 2024-08-18 | Outpatient (CLI) | payer OTHER | END | disposition home or self-care (01) | LOC: RAD 10:46 | PROVIDERS: ATTEND Internal Medicine | DX: M25.561 Pain in right knee (principal) ==